=== PATIENT | female | born 1960 | race Caucasian/White ===

== ENCOUNTER → 2020-12-06 15:20 | Outpatient (CLI) | payer OTHER, SELFPAY ==
--- NOTE | ~2020-12-06 | MR_ITS ---
EXAMINATION: MR shoulder RT wo con DATE: 12/06/2020 16:13 INDICATION: Rotator cuff and labral tear presenting with severe right shoulder pain. TECHNIQUE: Magnetic resonance imaging (MRI) of the right shoulder was performed without intravenous c ontrast. Sequences included axial PD-weighted FS FSE, coronal oblique PD-weighted FS FSE, coronal obl ique T2-weighted FS FSE, sagittal PD-weighted FS FSE, and sagittal T1-weighted SE. COMPARISON: None. FINDINGS: Coracoacromial arch: The acromion undersurface is curved in morphology (type II). The coracoacromial ligament is normal. M oderate acromioclavicular osteoarthritis. Rotator cuff: Mild to moderate supraspinatus tendinopathy without discrete tear. There is thickening of the rotator table. The infraspinatus and teres minor tendons are normal. Mild subscapularis tendinopathy with ve ry thin longitudinal split tear extending approximately 1.5 cm medially from the lesser tuberosity fo otplate between the fibers of the cephalad and middle thirds of the tendon and involving up to two th irds of the thickness of the tendon. Normal rotator cuff muscle bulk and signal. Biceps tendon, glenoid labrum and glenohumeral cartilage: Moderate tendinopathy of the intra-articular portion of the long head biceps tendon. There is a tear of the superior glenoid labrum which appears to extend minimally into the long head biceps tendon at its anchor as well as into the superior glenohumeral ligament. Partial-thickness cartilage loss along the inferomedial aspect of the humeral head with tiny marginal osteophyte and small focus of subarti cular edema. Additional tiny marginal osteophytes along the anterior glenoid. Fluid: Small to moderate-sized glenohumeral joint effusion. Additional increased fluid in the long head norm ps tendon sheath which could be related to the joint effusion or bicipital tenosynovitis. No loose os teochondral bodies. Mild increased fluid signal in the subacromial/subdeltoid bursa consistent with m ild bursitis. Bones: Bone alignment is normal. No fracture or pathologic marrow replacing process. IMPRESSION: 1. Mild subscapularis small very thin longitudinal split tear in the distal subscapularis tendon. 2. Mild to moderate supraspinatus tendinopathy without discrete tear. 3. SLAP tear of the superior glenoid labrum which extends both into the superior glenohumeral ligamen t as well as a short distance into the intra-articular long head biceps tendon which demonstrates mor e diffuse moderate tendinopathy. 4. Mild glenohumeral osteoarthritis with small to moderate-sized joint effusion. 5. Moderate acromioclavicular osteoarthritis with mild underlying subacromial/subdeltoid bursitis. Reviewed, dictated and finalized at location A. [facility] IMPRESSION: 1. Mild subscapularis small very thin longitudinal split tear in the distal sub scapularis tendon. 2. Mild to moderate supraspinatus tendinopathy without discrete tear. 3. SLAP tear of the superior glenoid labrum which extends both into the superio r glenohumeral ligament as well as a short distance into the intra-articular lo ng head biceps tendon which demonstrates more diffuse moderate tendinopathy. 4. Mild glenohumeral osteoarthritis with small to moderate-sized joint effusion . 5. Moderate acromioclavicular osteoarthritis with mild underlying subacromial/s ubdeltoid bursitis.
== END ==
PROVIDERS: Visit Provider Chiropractor
DX: M75.101 Unspecified rotator cuff tear or rupture of right shoulder, not specified as traumatic (principal); S43.431A Superior glenoid labrum lesion of right shoulder, initial encounter; X58.XXXA Exposure to other specified factors, initial encounter; M19.011 Primary osteoarthritis, right shoulder
CPT/HCPCS: 73221